=== PATIENT | female | born 1985 | race Caucasian/White ===

== ENCOUNTER 2018-04-14 22:32 | Emergency (ER) | payer MEDICAID ==
[2018-04-15 00:23] LABS: ADD MAN DIFF? NO
[2018-04-15 00:43] LABS: ANION GAP 14 (8-16); BLOOD UREA NITROGEN 20 mg/dl (7-20); CALCIUM 9.2 mg/dl (8.4-10.2); CARBON DIOXIDE 27 mmol/L (21-31); CHLORIDE 105 mmol/L (97-110); CREATININE 0.71 mg/dl (0.44-1.00); GLUCOSE 96 mg/dl (70-220); POTASSIUM 5.3 mmol/L (3.5-5.1); SODIUM 141 mmol/L (135-144)
[2018-04-15 00:57] LABS: TROPONIN-I < 0.012 ng/ml (0.000-0.120)
[2018-04-15 01:43] LABS: BASOPHILS % 0.2 % (0.0-2.0); EOSINOPHILS # 0.1 10^3/ul (0.0-0.5); EOSINOPHILS % 1.1 % (0.0-7.0); HEMATOCRIT 42.2 % (37.0-47.0); HEMOGLOBIN 13.9 g/dl (12.0-16.0); LYMPHOCYTES # 2.5 10^3/ul (0.8-2.9); LYMPHOCYTES % 20.3 % (15.0-51.0); MEAN CORPUSCULAR HEMOGLOBIN 28.7 pg (29.0-33.0); MEAN CORPUSCULAR HGB CONC 32.9 g/dl (32.0-37.0); MEAN CORPUSCULAR VOLUME 87.2 fl (82.0-101.0); MONOCYTE # 0.9 10^3/ul (0.3-0.9); MONOCYTES % 7.6 % (0.0-11.0); NEUTROPHIL # 8.7 10^3/ul (1.6-7.5); NEUTROPHILS % 70.4 % (39.0-77.0); PLATELET COUNT 324 10^3/UL (140-415); RED BLOOD COUNT 4.84 10^6/ul (4.20-5.40); RED CELL DISTRIBUTION WIDTH 14.4 % (11.5-14.5)
[2018-04-15 01:43] LABS: WHITE BLOOD COUNT 12.3 10^3/ul (4.8-10.8)
== END 2018-04-15 02:50 | disposition home or self-care (01) ==
LOC: FTE 04-15 02:50
DX: R07.89 Other chest pain (principal); J45.909 Unspecified asthma, uncomplicated
CPT/HCPCS: 36415; 71045; 80048; 84484; 85025; 93005; 99285-25

== ENCOUNTER 2019-03-17 15:56 | Emergency (ER) | payer MEDICAID ==
[2019-03-17 17:21] LABS: ADD MAN DIFF? NO
[2019-03-17] MEDS: FAMOTIDINE 20 MG TAB PO (17:24)
[2019-03-17] MEDS: ACETAMINOPHEN 325 MG TAB PO (17:24)
[2019-03-17] MEDS: LIDOCAINE/MYLANTA 40 ML BTL PO (17:24)
[2019-03-17 17:25] LABS: BASOPHILS % 0.2 % (0.0-2.0); EOSINOPHILS # 0.1 10^3/ul (0.0-0.5); EOSINOPHILS % 0.4 % (0.0-7.0); HEMATOCRIT 43.4 % (37.0-47.0); HEMOGLOBIN 14.1 g/dl (12.0-16.0); LYMPHOCYTES # 2.3 10^3/ul (0.8-2.9); LYMPHOCYTES % 17.6 % (15.0-51.0); MEAN CORPUSCULAR HEMOGLOBIN 28.4 pg (29.0-33.0); MEAN CORPUSCULAR HGB CONC 32.5 g/dl (32.0-37.0); MEAN CORPUSCULAR VOLUME 87.3 fl (82.0-101.0); MEAN PLATELET VOLUME 9.6 fl (7.4-10.4); MONOCYTE # 1.5 10^3/ul (0.3-0.9); MONOCYTES % 11.5 % (0.0-11.0); NEUTROPHIL # 9.1 10^3/ul (1.6-7.5); NEUTROPHILS % 69.8 % (39.0-77.0); PLATELET COUNT 409 10^3/UL (140-415); RED BLOOD COUNT 4.97 10^6/ul (4.20-5.40); RED CELL DISTRIBUTION WIDTH 13.8 % (11.5-14.5)
[2019-03-17 17:29] LABS: ADD UMIC YES; UR ASCORBIC ACID NEGATIVE (NEGATIVE); UR BILIRUBIN (Dip) NEGATIVE (NEGATIVE); UR BLOOD (Dip) 1+ mg/dL (NEGATIVE); UR CLARITY SLIGHTLY CLOUDY (CLEAR); UR COLOR YELLOW (YELLOW); UR GLUCOSE (Dip) NEGATIVE (NEGATIVE); UR KETONES (Dip) TRACE mg/dL (NEGATIVE); UR LEUKOCYTE ESTERASE (Dip) NEGATIVE Leu/ul (NEGATIVE); UR NITRITE (Dip) NEGATIVE (NEGATIVE); UR RBC 0 /HPF (0-5); UR SPECIFIC GRAVITY (Dip) 1.029 (1.003-1.030); UR SQUAMOUS EPITHELIAL CELL FEW /HPF (FEW); UR TOTAL PROTEIN (Dip) NEGATIVE (NEGATIVE); UR UROBILINOGEN (Dip) NEGATIVE (NEGATIVE); UR WBC 0 /HPF (0-5)
[2019-03-17 17:42] LABS: ALANINE AMINOTRANSFERASE 23 IU/L (13-69); ALBUMIN 4.1 g/dl (3.3-4.9); ALBUMIN/GLOBULIN RATIO 1.17; ALKALINE PHOSPHATASE 73 IU/L (42-121); ANION GAP 9 (5-13); ASPARTATE AMINO TRANSFERASE 17 IU/L (15-46); BILIRUBIN,INDIRECT 0.2 mg/dl (0-1.1); BILIRUBIN,TOTAL 0.2 mg/dl (0.2-1.3); BLOOD UREA NITROGEN 19 mg/dl (7-20); CALCIUM 9.4 mg/dl (8.4-10.2); CARBON DIOXIDE 29 mmol/L (21-31); CHLORIDE 103 mmol/L (97-110); CREATININE 0.65 mg/dl (0.44-1.00); Estimated GFR > 60 mL/min (>60); GLUCOSE 93 mg/dl (70-220); LIPASE 86 U/L (23-300); POTASSIUM 4.2 mmol/L (3.5-5.1); SODIUM 141 mmol/L (135-144); TOTAL PROTEIN 7.6 g/dl (6.1-8.1)
== END 2019-03-17 20:02 | disposition home or self-care (01) ==
LOC: FTE 20:02
DX: R10.13 Epigastric pain (principal); J45.909 Unspecified asthma, uncomplicated
CPT/HCPCS: 36415; 74176; 80053; 81001; 81025; 83690; 85025; 99284-25

== ENCOUNTER 2019-05-17 13:39 | Day surgery (SDC) | payer MEDICAID ==
[2019-05-17] MEDS: LACTATED RINGER'S 1,000 ML IV ×2 (06:00→17:01)
[2019-05-17] MEDS: CEFAZOLIN 2 GM/50 ML (PMX) 50 ML (FOR WT < 120 KG) IVPB (06:00)
[~2019-05-17 13:39] MED LIST: SOD CHLORIDE 0.9% 1,000 ML IV
[2019-05-17 14:35] LABS: ADD MAN DIFF? NO
[2019-05-17 14:39] LABS: WHITE BLOOD COUNT 8.8 10^3/ul (4.8-10.8)
[2019-05-17 14:39] LABS: BASOPHILS % 0.2 % (0.0-2.0); EOSINOPHILS # 0.2 10^3/ul (0.0-0.5); EOSINOPHILS % 1.7 % (0.0-7.0); HEMATOCRIT 43.5 % (37.0-47.0); LYMPHOCYTES # 2.7 10^3/ul (0.8-2.9); MEAN CORPUSCULAR HEMOGLOBIN 27.8 pg (29.0-33.0); MEAN CORPUSCULAR HGB CONC 32.2 g/dl (32.0-37.0); MEAN CORPUSCULAR VOLUME 86.5 fl (82.0-101.0); MEAN PLATELET VOLUME 9.9 fl (7.4-10.4); MONOCYTE # 0.6 10^3/ul (0.3-0.9); MONOCYTES % 7.3 % (0.0-11.0); NEUTROPHIL # 5.2 10^3/ul (1.6-7.5); NEUTROPHILS % 59.6 % (39.0-77.0); PLATELET COUNT 343 10^3/UL (140-415); RED BLOOD COUNT 5.03 10^6/ul (4.20-5.40); RED CELL DISTRIBUTION WIDTH 13.9 % (11.5-14.5)
[2019-05-17 15:00] LABS: INR 0.89; PARTIAL THROMBOPLASTIN TIME 29.1 Sec (23.0-35.0); PROTIME 12.2 Sec (11.9-14.9)
[2019-05-17] MEDS ORDERED: PROPOFOL 100 ML (15:22)
[2019-05-17] MEDS ORDERED: LIDOCAINE 2% (SDV) 5 ML INJ (15:25)
[2019-05-17] MEDS ORDERED: ROCURONIUM 50 MG INJ (15:25)
[2019-05-17] MEDS ORDERED: FENTAnyl 50 MCG/ML VIAL (15:26)
[2019-05-17] MEDS ORDERED: DEXAMETHASONE 4 MG/ML 5 ML INJ (15:54)
[2019-05-17] MEDS ORDERED: ONDANSETRON 4 MG INJ (15:55)
[2019-05-17] MEDS ORDERED: CEFAZOLIN 1 GM INJ (15:56)
[2019-05-17] MEDS ORDERED: KETOROLAC 30 MG INJ (15:56)
[2019-05-17] MEDS ORDERED: LABETALOL HCL 20MG INJ IV (16:30)
[2019-05-17] MEDS ORDERED: ONDANSETRON 4 MG INJ IV (16:30)
[2019-05-17] MEDS ORDERED: METOCLOPRAMIDE 10 MG INJ IV (16:30)
[2019-05-17] MEDS ORDERED: MEPERIDINE 25 MG INJ IV (16:30)
[2019-05-17] MEDS ORDERED: hydrALAzine 20 MG INJ IV (16:30)
[2019-05-17] MEDS ORDERED: ALBUTEROL 0.083% (NEB) 2.5 MG/3 ML AMP HHN (16:30)
[2019-05-17] MEDS ORDERED: EPHEDrine 25 MG/5 ML SYG IV (16:30)
[2019-05-17] MEDS ORDERED: MIDAZOLAM 1 MG/ML 2 ML INJ IV (16:30)
[2019-05-17] MEDS ORDERED: OXYCODONE/ACETAMINOPHEN (5/325) TAB PO ×2 (16:30)
[2019-05-17] MEDS ORDERED: FENTAnyl 50 MCG/ML VIAL IV (16:30)
[2019-05-17] MEDS ORDERED: DIPHENHYDRAMINE 50 MG INJ IV (16:30)
[2019-05-17] MEDS ORDERED: GLYCOPYRROLATE 0.4 MG INJ (16:57)
[2019-05-17] MEDS ORDERED: NEOSTIGMINE 3 MG/3 ML SYRINGE (16:57)
[2019-05-17] MEDS: FENTAnyl 50 MCG/ML VIAL IV ×2 (17:11→17:28)
[2019-05-17] MEDS: BUTORPHANOL 2 MG INJ IM (17:16)
[2019-05-17] MEDS: KETOROLAC 30 MG INJ IM (17:18)
[2019-05-17] MEDS: BUPIVACAINE 0.25%/EPI (SDV) 30 ML INJ (17:20)
[2019-05-17] MEDS: DOXYCYCLINE 100 MG TAB PO (17:25)
== END 2019-05-17 18:14 | disposition home or self-care (01) ==
LOC: SDS 13:39
DX: Z30.2 Encounter for sterilization (principal)
CPT/HCPCS: 58670; 84703; 85025; 85610; 85730